=== PATIENT | male | born 1970 | race Two or more races ===

== ENCOUNTER 2016-12-05 10:03 | Emergency (ER) | payer OTHER ==
--- NOTE | 2016-12-05 10:50 | EDPHY ---
HPI/HX/ROS/PE/MDM Narrative: CHIEF COMPLAINT: Abdominal laceration. HPI: The patient is a 46-year-old male who presents with abdominal lacerations secondary to several heavy pipes falling on him at an oblique angle an hour prior to arrival while at work. The bleeding has been well-controlled. He denies shortness of breath, chest pain, lightheadedness, dizziness, or other complaints. REVIEW OF SYSTEMS: Aside from elements discussed in the HPI, a comprehensive 10-point review of systems was reviewed and is negative. PMH: Denies. SOCIAL HISTORY: Works at [employer]. PHYSICAL EXAM: General: Patient is alert, in no acute distress. Head: Atraumatic. Abdomen: The abdomen is nontender to palpation. There are no peritoneal signs. There are normal bowel sounds. 4 parallel lacerations to upper abdomen. The largest is 3 inches long and goes through the dermis but clearly not into the subdermal space. No ecchymosis. Chest: Mildly tender over ribcage. No crepitus. Skin: Normal color. No rash. Warm and dry. Extremities: Normal appearance. Full range of motion. Neuro: Oriented x3. Normal motor function. Normal sensory function. Back: Atraumatic, non-tender. Portions of this note were transcribed by an ED scribe. I personally performed the history, physical exam, and medical decision making; and confirm the accuracy of the information in the transcribed note. ED Course: 46-year-old male presents with 4 upper abdominal lacerations after some pipes fell on him at [employer] an hour ago. The largest of these is 3 inches long. It goes through the dermis and will require suturing. He is mildly tender over his ribcage but not in the abdomen. We will obtain a chest x-ray to check for rib fracture. I independently reviewed the patient's imaging on the PACS system. Please see Imaging section for radiologist report. I consulted with the story editor after she spoke with the patient. He reported to her that he was hit with 90-100 pounds of weight that pushed him back but did not push him to the ground. Abdomen/pelvis and chest CTs ordered. 1303: CT results conveyed to me by Dr. Ann, radiology. He reports patchy opacities in her right lower lobe but no acute traumatic findings. 1314: Consulted with patient via Italian american sign language interpreter. I discussed with him the CT results. 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 He has not had a TB test in many years. I offered him the option of having his laceration sutured or not. He would like to have it sewn. Case Management will be consulted to get him a doctor here for pulmonary reevaluation. Verbal consent was obtained from the patient. The linear laceration on the upper abdomen was anesthetized. The wound was cleaned with standard ED protocol , draped and explored to its base with a gloved finger. There were no deep structures involved. The wound was repaired in single layer technique with 7 4- 0 Prolene sutures. The wound repair was complex. The procedure was performed by myself. MDM: This patient presents with traumatic injury to his anterior abdomen. There are 4 very small lacerations, only 1 of which requires suture repair. There is clearly no evidence of penetration the abdomen. The patient has some mild discomfort in this area which prompted CT evaluation to exclude solid organ injury. Thankfully this negative. Of note, the patient's CT is notable for multiple opacities in the right lower lobe. The radiologist does not feel that this is consistent with trauma, and on further history obtained in part using the pathology teacher, the patient has no history of fever or cough to suggest pneumonia. 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 I think the patient would benefit from repeat chest x-ray within a month. I have asked our case coordinator to work with him to establish a primary care physician. - Data Points Imaging Results: Imaging Impressions Chest X-Ray 12/05/16 10:49 Impression: Right basilar consolidation that could be related to contusion or less likely pneumonia. Findings discussed with Deejay Can MD 12/05/2016 at 11:25. Abdomen CT 12/05/16 11:27 Impression: 1. Multifocal right lower lobe consolidation. This could be related to aspiration or pneumonia (possibly subacute). Contusions are considered unlikely given the appearance and lack of chest trauma. Given the single lobar distribution, pneumoconioses and other interstitial lung diseases are considered unlikely. Follow-up radiographs are recommended in one month. 2. Skin laceration over the right upper quadrant with no acute posttraumatic findings in the abdomen or pelvis. 3. Additional findings as above. Findings discussed with Deejay Can MD 12/05/2016, at [address] 12/05/16 11:27 Impression: 1. Multifocal right lower lobe consolidation. This could be related to aspiration or pneumonia (possibly subacute). Contusions are considered unlikely given the appearance and lack of chest trauma. Given the single lobar distribution, pneumoconioses and other interstitial lung diseases are considered unlikely. Follow-up radiographs are recommended in one month. 2. Skin laceration over the right upper quadrant with no acute posttraumatic findings in the abdomen or pelvis. 3. Additional findings as above. Findings discussed with Deejay Can MD 12/05/2016, at 1300 hours. General Time Seen by Provider: 12/05/16 10:45 Initial Vital Signs: Initial Vital Signs Temperature (C) 36.5 C 12/05/16 10:10 Heart Rate 75 12/05/16 10:10 Respiratory Rate 16 12/05/16 10:10 Blood Pressure 120/74 12/05/16 10:10 O2 Sat (%) 98 12/05/16 10:10 O2 Delivery Mode Room Air Allergies/Adverse Reactions: No Known Allergies Allergy (Unverified 12/05/16 10:10) Home Medications: Medication Instructions Recorded NK [No Known Home Meds] 12/05/16 Departure - Departure Disposition: Home, Routine, Self-Care Clinical Impression: Lung consolidation Laceration of chest wall Qualifiers: Encounter type: initial encounter Laterality: right Qualified Code(s): S21.111A - Laceration without foreign body of right front wall of thorax without penetration into thoracic cavity, initial encounter Condition: Good Instructions: Care For Your Stitches (ED), Laceration (ED) Additional Instructions: Keep wound clean with warm water. You can shower with the stitches but avoid prolonged immersion in water. Mantener la herida limpia con agua tivia. Te puedes banar en la ducha parmjit evitar inmersion prolongado en agua. Return in 7-10 days for suture removal. Regresar en 7-10 young para quitar los puntos. Follow up with Workman's Comp. Jo de seguimiento staton pronto posible con de [employer]adores. Return to the emergency department for any serious worsening of condition. Regresar a la charlene de Emergencia para cualquier empeoramiento de tu condicion. Referrals: [facility] [Outside] - As per Instructions Stand Alone Forms: Work Comp Follow Up Print Language: Italian Report Scribed for: Deejay Can Report Scribed by: Jl Pereira Date of Report: 12/05/16 Time of Report: 10:53
[2016-12-05] MEDS ORDERED: IOPAMIDOL (ISOVUE-300) 100 ML BTL IV ONE (12:09)
[2016-12-05 14:58] VITALS: BP 111/78; PULSE 76; RESP 14; TEMP 98.6; O2SAT 96
== END 2016-12-05 14:57 | disposition home or self-care (01) ==
PROC: 0HQ5XZZ Repair Chest Skin, External Approach (ICD-10-PCS; principal; 2016-12-05)
DX: S21.111A Laceration without foreign body of right front wall of thorax without penetration into thoracic cavity, initial encounter (principal); J18.1 Lobar pneumonia, unspecified organism; W20.8XXA Other cause of strike by thrown, projected or falling object, initial encounter; Y92.69 Other specified industrial and construction area as the place of occurrence of the external cause; Y99.0 Civilian activity done for income or pay; Y93.89 Activity, other specified
CPT/HCPCS: Q9967